=== PATIENT | female | born 1990 | race Caucasian/White ===

== ENCOUNTER → 2021-04-25 09:32 | Outpatient (BNVA) | payer OTHER, SELFPAY | PROVIDERS: PCP Internal Medicine; Visit Provider Physician Assistant Surgical ==

== ENCOUNTER → 2021-05-10 13:01 | Outpatient (BNVA) | payer OTHER, SELFPAY | PROVIDERS: PCP Internal Medicine; Visit Provider Physician Assistant Surgical | DX: E66.01 Morbid (severe) obesity due to excess calories (principal); Z79.899 Other long term (current) drug therapy; Z71.3 Dietary counseling and surveillance | CPT/HCPCS: Q3014 ==

== ENCOUNTER 2021-05-24 08:36 | Outpatient (REF) | payer OTHER, SELFPAY ==
--- NOTE | ~2021-05-24 | XR_ITS ---
EXAMINATION: XR CHEST CLINICAL INFORMATION: Moderate/severe obesity. COMPARISON: None TECHNIQUE: 2 views of the chest were obtained. FINDINGS: No significant abnormality is noted involving the heart, lungs, mediastinum, or soft tissues. Mild multilevel degenerative spondylosis. XR/XR chest 2V IMPRESSION: No radiographic evidence of acute cardiopulmonary disease.
--- NOTE | 2021-05-24 08:49 | ECG_ITS ---
Test Reason : E66.01 Blood Pressure : / mmHG Vent. Rate : 072 BPM Atrial Rate : 072 BPM P-R Int : 130 ms QRS Dur : 080 ms QT Int : 384 ms P-R-T Axes : 010 033 021 degrees QTc Int : 420 ms Normal sinus rhythm Normal ECG No previous ECGs available Referred By: Skip Chairez Electronically Signed By:ROCHELLE BAIG MD
[2021-05-24 09:07] LABS: MANUAL DIFF FLAG NO
[2021-05-24 09:37] LABS: Basophils Percent Auto 0.3 % (0-2); Eosinophils Absolute Auto 0.2 X10*3/uL (0.0-0.4); Eosinophils Percent Auto 2.6 % (0-4); Hematocrit 36.7 % (37.0-47.0); Hemoglobin 12.1 g/dl (12.0-16.0); Imm Gran Abs Auto 0.01 X10*3/uL (0.00-0.03); Imm Gran Pct Auto 0.2 % (0.0-0.4); Lymphocytes Absolute Auto 1.9 X10*3/uL (1.2-4.9); Lymphocytes Percent Auto 30.3 % (20-40); Mean Corpuscular Hemoglobin 27.1 pg (27.0-33.0); Mean Corpuscular Volume 82.3 fL (80.0-98.0); Monocytes Absolute Auto 0.6 X10*3/uL (0.1-1.2); Monocytes Percent Auto 9.9 % (2-11); Neutrophils Absolute Auto 3.5 x10*3/uL (2.0-8.3); Neutrophils Percent Auto 56.7 % (45-73); Platelet Count 318 X10*3/uL (160-400); Red Blood Count 4.46 X10*6/uL (4.20-5.50); Red Cell Distribution Width 12.9 % (11.0-16.0); White Blood Count 6.2 X10*3/uL (4.8-10.8)
[2021-05-24 10:29] LABS: Estimated Average Glucose 108 mg/dL; Hemoglobin A1c % 5.4 %
[2021-05-24 10:40] LABS: Alanine Aminotransferase 23 U/L (0-31); Albumin Level 3.9 g/dL (3.5-5.0); Alkaline Phosphatase 107 U/L (39-117); Anion Gap 11 (12-20); Aspartate Amino Transferase 19 U/L (5-31); Bilirubin Total 0.5 mg/dL (0.0-1.0); Blood Urea Nitrogen 12 mg/dL (9-16); C Reactive Protein 4.06 mg/dL (< or = 0.50); Calcium 9.6 mg/dL (8.4-10.2); Carbon Dioxide 26 mmol/L (22-29); Chloride 104 mmol/L (96-108); Cholesterol 150 mg/dL; Estimated Glomerular Filt Rate > 60; Glucose Random 94 mg/dL (60-115); HDL Cholesterol 26 mg/dL; Iron 58 mcg/dL (30-160); LDL Cholesterol Calculated 112 mg/dl; Percent Iron Saturation 13 % (15-50); Potassium 4.3 mmol/L (3.3-5.1); Sodium 137 mmol/L (135-145); Total Iron Binding Capacity 452 mcg/dL (228-428); Total Protein 8.1 g/dL (6.5-8.0); Triglycerides 63 mg/dL; Unsaturated Iron Binding 394 ug/dL
[2021-05-24 10:42] LABS: Folate 12.8 ng/mL (> or = 4.0); Vitamin B12 772 pg/mL (200-900)
[2021-05-24 11:03] LABS: Ferritin 51 ng/mL (10-122); TSH reflex Free T4 0.99 uIU/mL (0.32-4.0)
[2021-05-27 14:36] LABS: Calcium (PTHI) 9.5 mg/dL (8.6-10.2); PTHI 60 pg/mL (16-77)
[2021-05-29 00:56] LABS: Zinc 68 mcg/dL (60-130)
[2021-05-29 13:16] LABS: Vitamin B1 <6 nmol/L (8-30)
[2021-05-30 16:05] LABS: Vitamin A 37 mcg/dL (38-98)
== END 2021-05-24 08:37 | disposition home or self-care (01) ==
LOC: HO.XRAY 08:36
PROVIDERS: PCP Internal Medicine; Visit Provider Physician Assistant Surgical
DX: Z01.818 Encounter for other preprocedural examination (principal); E66.01 Morbid (severe) obesity due to excess calories
CPT/HCPCS: 36415; 71046; 80053; 80061; 82306; 82607; 82728; 82746; 83036; 83540; 83970; 84425; 84443; 84590; 84630; 85025; 86140; 93005

== ENCOUNTER → 2021-06-05 08:08 | Outpatient (BNVA) | payer OTHER, SELFPAY | PROVIDERS: PCP Internal Medicine; Visit Provider Surgery | DX: Z13.89 Encounter for screening for other disorder (principal) ==

== ENCOUNTER → 2021-06-06 09:48 | Outpatient (BNVA) | payer OTHER, SELFPAY | PROVIDERS: PCP Internal Medicine; Visit Provider Surgery | DX: Z13.89 Encounter for screening for other disorder (principal) ==

== ENCOUNTER → 2021-06-07 10:30 | Outpatient (BNVA) | payer OTHER, SELFPAY | PROVIDERS: PCP Internal Medicine; Visit Provider Dietitian, Registered | DX: E66.01 Morbid (severe) obesity due to excess calories (principal); Z68.42 Body mass index [BMI] 45.0-49.9, adult; Z71.3 Dietary counseling and surveillance | CPT/HCPCS: 97802 ==

== ENCOUNTER → 2021-06-26 08:08 | Outpatient (BNVA) | payer OTHER, SELFPAY | PROVIDERS: PCP Internal Medicine; Referring Provider Surgery; Visit Provider Dietitian, Registered | DX: E66.01 Morbid (severe) obesity due to excess calories (principal); Z68.42 Body mass index [BMI] 45.0-49.9, adult | CPT/HCPCS: 97803 ==

== ENCOUNTER 2021-07-10 08:29 | Outpatient (REF) | payer OTHER, SELFPAY ==
--- NOTE | ~2021-07-10 | FL_ITS ---
EXAMINATION: XR FLUOROSCOPY UPPER GI WITH AIR CLINICAL INFORMATION: Morbid to severe obesity due to excess calories. COMPARISON: None TECHNIQUE: Routine upper GI contrast study was performed. FINDINGS: Following oral administration of thick barium and effervescent granules there is normal propagation of bolus from the oral cavity through the pharynx, esophagus into stomach without any evidence of obstruction, narrowing or stricture. The course, caliber and peristalsis of the stomach is normal. On placing patient supine and prone there is moderate gastroesophageal reflux without hiatal hernia. The mucosal pattern of the stomach, duodenal bulb and the sweep is normal. The course, caliber and peristalsis of the stomach is normal. Incidental note is made of cholecystectomy changes. FLUOROSCOPY TIME: 2.3 minutes DOSE AREA PRODUCT: 29.920 uGy-m2 (microgray-meter squared) FL/FL upper GI w air IMPRESSION: Moderate gastroesophageal reflux without hiatal hernia. Otherwise unremarkable upper GI air-contrast study.
--- NOTE | ~2021-07-10 | US_ITS ---
EXAMINATION: US COMPLETE ABDOMEN WITH LIVER ELASTOGRAPHY CLINICAL INFORMATION: Morbid/severe obesity. COMPARISON: None. TECHNIQUE: Real-time imaging of the abdominal viscera. Noninvasive ultrasound liver fibrosis assessment is performed using Erica ElastPQ point quantification shear wave elastography (2D-SWE) with a C5-2 MHz transducer. Multiple elastography samples are obtained. FINDINGS: PANCREAS: The visualized pancreatic head and body are normal in appearance. The remainder of the pancreas is obscured from visualization by the overlying bowel gas. ABDOMINAL AORTA: The proximal, middle, and distal aortic segments are normal in caliber. INFERIOR VENA CAVA: Visualized portions are normal. LIVER: The liver demonstrates normal size, contour and increased echogenicity. There is anechoic right hepatic lobe cyst measuring 1.2 x 1.2 x 0.8 cm. No additional lesions seen. There is no intrahepatic ductal dilatation. The right lobe measures 1.52 cm in length. The left lobe measures 0.12 cm in length. Portal flow is hepatopedal. Shear wave liver elastography median stiffness is 1.52 m/s (reference: normal median stiffness is 1.3 m/s or less). IQR/median stiffness to assess sampling precision is 0.12 (reference: good quality data set is IQR/median stiffness of 0.15 or less). GALLBLADDER: Gallbladder has been surgically removed. COMMON BILE DUCT: Normal in caliber measuring 0.19 cm in diameter. RIGHT KIDNEY: Normal. No hydronephrosis. No renal calculi or focal parenchymal lesions. The kidney measures 10.1 cm in maximum dimension. LEFT KIDNEY: Normal. No hydronephrosis. No renal calculi or focal parenchymal lesions. The kidney measures 10.2 cm in maximum dimension. SPLEEN: Normal. The spleen measures 9.55 cm in maximum dimension. FREE FLUID: None. US/US abdomen comp w elastography IMPRESSION: 1. Right hepatic lobe cyst with diffuse hepatic steatosis. 2. Liver elastography: Median liver stiffness measures 1.52 m/s corresponding to cACLD ruled out. REFERENCE: Society of Radiologists in Ultrasound Liver Stiffness Thresholds (2019): LIVER STIFFNESS THRESHOLDS: *Liver Stiffness equal or less than 1.3 m/s: High probability of being normal. *Liver Stiffness less than 1.7 m/s: In the absence of other known clinical signs, rules out compensated advanced chronic liver disease. *Liver Stiffness 1.7-2.1 m/s: Suggestive of compensated advanced chronic liver disease but need further test for confirmation. *Liver Stiffness over 2.1 m/s: Rules in compensated advanced chronic liver disease. *Liver Stiffness over 2.4 m/s: Suggestive of clinically significant portal hypertension. QUALITY OF DATA SET: *IQR/Median value equal or less than 0.15 implies a quality data set. *IQR/Median value over 0.15 implies a poor quality data set. SIGNIFICANT CHANGE FROM PRIOR EXAM: Significant change if liver stiffness measurement is 10% or greater from prior exam. OTHER CONSIDERATIONS: The stage of liver fibrosis may be overestimated in the setting of acute hepatitis, liver inflammation, elevated liver function tests, hepatic vascular congestion, obstructive cholestasis, non-fasting state, and infiltrative diseases such as amyloidosis and lymphoma. In some patients with NAFLD, the liver stiffness thresholds for compensated advanced chronic liver disease may be lower. In causes other than viral hepatitis and NAFLD, liver stiffness thresholds are not well established.
== END 2021-07-10 08:30 | disposition home or self-care (01) ==
LOC: HO.US 08:29
PROVIDERS: PCP Internal Medicine; Visit Provider Surgery
DX: Z01.818 Encounter for other preprocedural examination (principal); E66.01 Morbid (severe) obesity due to excess calories; K21.9 Gastro-esophageal reflux disease without esophagitis
CPT/HCPCS: 74246; 76705; 76981

== ENCOUNTER → 2021-07-12 08:16 | Outpatient (BNVA) | payer OTHER, SELFPAY | PROVIDERS: PCP Internal Medicine; Visit Provider Surgery | DX: Z13.89 Encounter for screening for other disorder (principal) ==

== ENCOUNTER 2021-07-16 08:25 | Outpatient (REF) | payer OTHER, SELFPAY ==
[2021-07-17 14:10] LABS: H Pylori Breath Test Negative (Negative)
== END 2021-07-16 08:26 | disposition home or self-care (01) ==
LOC: HO.LNP 08:25
PROVIDERS: Physician Assistant Surgical; PCP Internal Medicine; Visit Provider Physician Assistant
DX: E66.01 Morbid (severe) obesity due to excess calories (principal); Z11.0 Encounter for screening for intestinal infectious diseases
CPT/HCPCS: 83013; 99211

== ENCOUNTER 2021-11-26 17:09 | Inpatient (IN) | payer OTHER, SELFPAY ==
[2021-11-15 13:33] VITALS: BMI 42.2
[2021-11-19 09:49] LABS: MANUAL DIFF FLAG NO
[2021-11-19 11:41] LABS: Estimated Average Glucose 103 mg/dL; Hemoglobin A1c % 5.2 %
[2021-11-19 11:42] LABS: INTERNATIONAL NORM RATIO 1.1 (0.9-1.1); Prothrombin Time 12.2 SEC (10.0-13.1)
[2021-11-19 11:45] LABS: Basophils Percent Auto 0.4 % (0-2); Eosinophils Absolute Auto 0.1 X10*3/uL (0.0-0.4); Hematocrit 37.2 % (37.0-47.0); Hemoglobin 12.5 g/dl (12.0-16.0); Imm Gran Abs Auto 0.01 X10*3/uL (0.00-0.03); Imm Gran Pct Auto 0.2 % (0.0-0.4); Lymphocytes Absolute Auto 1.6 X10*3/uL (1.2-4.9); Lymphocytes Percent Auto 32.3 % (20-40); Mean Corpuscular HGB Conc 33.6 g/dl (31.0-35.0); Mean Corpuscular Hemoglobin 27.8 pg (27.0-33.0); Mean Corpuscular Volume 82.9 fL (80.0-98.0); Mean Platelet Volume 9.5 fL (9.4-12.3); Monocytes Absolute Auto 0.4 X10*3/uL (0.1-1.2); Monocytes Percent Auto 8.7 % (2-11); Neutrophils Absolute Auto 2.9 x10*3/uL (2.0-8.3); Neutrophils Percent Auto 56.4 % (45-73); Partial Thromboplastin Time 30.1 SEC (26.0-36.4); Platelet Count 296 X10*3/uL (160-400); Red Blood Count 4.49 X10*6/uL (4.20-5.50); Red Cell Distribution Width 12.5 % (11.0-16.0); White Blood Count 5.1 X10*3/uL (4.8-10.8)
[2021-11-19 12:04] LABS: Alanine Aminotransferase 43 U/L (0-31); Albumin Level 3.8 g/dL (3.5-5.0); Alkaline Phosphatase 93 U/L (39-117); Anion Gap 13 (12-20); Aspartate Amino Transferase 31 U/L (5-31); Bilirubin Total 0.9 mg/dL (0.0-1.0); Blood Urea Nitrogen 11 mg/dL (9-16); C Reactive Protein 1.57 mg/dL (< or = 0.50); Calcium 9.1 mg/dL (8.4-10.2); Carbon Dioxide 25 mmol/L (22-29); Chloride 106 mmol/L (96-108); Cholesterol 127 mg/dL; Creatinine Clr Calc Pharmacy 112.4; Estimated Glomerular Filt Rate > 60; Glucose Random 89 mg/dL (60-115); HDL Cholesterol 25 mg/dL; LDL Cholesterol Calculated 94 mg/dl; Potassium 3.9 mmol/L (3.3-5.1); Sodium 140 mmol/L (135-145); Total Protein 7.6 g/dL (6.5-8.0); Triglycerides 44 mg/dL
[2021-11-19 12:12] LABS: Insulin 15 uU/mL (2-29); TSH reflex Free T4 1.07 uIU/mL (0.32-4.0)
--- NOTE | 2021-11-22 09:45 | HO.ANESPROP2 ---
Documented by User: Leidy Reyna NP 11/22/21 09:46 HPI - Anesthesia Eval Consult details Narrative: 31yo F for Gastrectomy Sleeve, EDG, possible diaphragmatic hernia, possible ventral hernia, possible open PMFSH Active Problems Active Problems: All Active Problems (Updated 11/15/21 @ 13:33 by Desirae Baird RN) Morbid obesity (Acute) ALINA (obstructive sleep apnea) (Acute) PTSD (post-traumatic stress disorder) (Acute) Low back pain (Acute) Chondromalacia (Acute) Depression (Acute) Vitamin A deficiency (Acute) Past Medical History Medical History (Updated 11/26/21 @ 13:03 by Carlos Gerber MD) COVID-19 vaccination declined Depression Insomnia Low back pain PTSD (post-traumatic stress disorder) Sleep apnea Family History Family History (Updated 04/26/21 @ 15:18 by Linnea Dunaway [facility]) Mother Fibromyalgia Anxiety Panic attacks Depression Father Heart problem Schizophrenia PTSD (post-traumatic stress disorder) Bipolar 1 disorder Sister No problems noted. Sister No problems noted. Sister No problems noted. Brother Sleep apnea PTSD (post-traumatic stress disorder) Kidney problem Son ADHD Speech delay Asthma Son Speech delay Autism Asthma Eczema Surgical History Surgical History (Updated 11/15/21 @ 13:33 by Desirae Baird RN) History of wisdom tooth extraction, class I edentulism Hx laparoscopic cholecystectomy Social History Social History (Updated 04/26/21 @ 15:18 by Linnea Dunaway [facility]) Are you a primary child day care teacher to a significant other at home: No Do you presently have visiting nurse or other home services: No Alcohol intake: never Patient Tobacco Use Status: Never used Tobacco Use of substances other than those prescribed or required for medical reasons: No Have you been hit, kicked, punched, or otherwise hurt by someone within the past year? If so, by whom?: No Are you DNR?: No Advance Directives: No Advance Directives Information Provided: Yes (brochure mailed) Advance Directives on File: No Recently lost weight without trying: No Nutrition Risks: No Nutritional Risk Patient : No (spoke with patient on 11/15-denies chance of ) FDLMP: 10/13/21 : No Poor oral hygiene: No Meds Allergies Allergy/AdvReac Type Severity Reaction Status Date / Time penicillin G Allergy Severe Anaphylaxis Verified 11/15/21 11:50 Latex, Natural Rubber Allergy Intermediate Rash Verified 11/15/21 13:05 Home Medications Medication Instructions Recorded Confirmed Last Taken Type azelastine 137 mcg (0.1 %) nasal 2 spray intranasal BID 04/26/21 11/15/21 11/16/21 History spray aerosol Exam Exam Date and Time: November 22, 2021 0945 Height,Weight and Vital Signs: Height 5 ft 1.5 in Weight 103.022 kg Pertinent Lab Results Pertinent Lab Results: Laboratory Tests 11/19/21 11/19/21 11/19/21 09:39 09:46 09:46 WBC 5.1 RBC 4.49 Hgb 12.5 Hct 37.2 MCV 82.9 MCH 27.8 MCHC 33.6 RDW 12.5 Plt Count 296 MPV 9.5 Immature Gran % (Auto) 0.2 Neut % (Auto) 56.4 Lymph % (Auto) 32.3 [place] % (Auto) 8.7 Eos % (Auto) 2.0 Baso % (Auto) 0.4 Lymph # (Auto) 1.6 [place] # (Auto) 0.4 Eos # (Auto) 0.1 Baso # (Auto) 0.0 Abs Immat Gran (auto) 0.01 Absolute Neuts (auto) 2.9 Absolute Nucleated RBC 0.000 Nucleated RBC % (auto) 0.0 PT 12.2 INR 1.1 APTT 30.1 Sodium Potassium Chloride Carbon Dioxide Anion Gap BUN Creatinine Estim Creat Clear Calc Estimated GFR Random Glucose Estimat Average Glucose Hemoglobin A1c % Insulin Level Calcium Total Bilirubin AST ALT Alkaline Phosphatase C-Reactive Protein Total Protein Albumin Triglycerides Cholesterol LDL Cholesterol, Calc HDL Cholesterol TSH Blood Type O Positive Antibody Screen NEGATIVE 11/19/21 11/19/21 09:46 09:46 WBC RBC Hgb Hct MCV MCH MCHC RDW Plt Count MPV Immature Gran % (Auto) Neut % (Auto) Lymph % (Auto) [place] % (Auto) Eos % (Auto) Baso % (Auto) Lymph # (Auto) [place] # (Auto) Eos # (Auto) Baso # (Auto) Abs Immat Gran (auto) Absolute Neuts (auto) Absolute Nucleated RBC Nucleated RBC % (auto) PT INR APTT Sodium 140 Potassium 3.9 Chloride 106 Carbon Dioxide 25 Anion Gap 13 BUN 11 Creatinine 0.80 Estim Creat Clear Calc 112.4 Estimated GFR > 60 Random Glucose 89 Estimat Average Glucose 103 Hemoglobin A1c % 5.2 Insulin Level 15 Calcium 9.1 Total Bilirubin 0.9 AST 31 D ALT 43 H Alkaline Phosphatase 93 C-Reactive Protein 1.57 H Total Protein 7.6 Albumin 3.8 Triglycerides 44 Cholesterol 127 LDL Cholesterol, Calc 94 HDL Cholesterol 25 TSH 1.07 Blood Type Antibody Screen Narrative Narrative: EKG 05/2021 Vent. Rate : 072 BPM ? ? Atrial Rate : 072 BPM ?? P-R Int : 130 ms? QRS Dur : 080 ms ? ? QT Int : 384 ms ? ? ? P-R-T Axes : 010 033 021 degrees ?? QTc Int : 420 ms ? Normal sinus rhythm Normal ECG No previous ECGs available Assessment and Plan Assessment Anesthesia Assessment: Chart Reviewed Documented by User: Rad Antoine MD 11/26/21 17:17 PMF Past Medical History Medical History (Updated 11/26/21 @ 13:03 by Carlos Gerber MD) COVID-19 vaccination declined Depression Insomnia Low back pain PTSD (post-traumatic stress disorder) Sleep apnea Functional capacity: independent ambulation Family History Family History (Updated 04/26/21 @ 15:18 by Linnea Dunaway CMA) Mother Fibromyalgia Anxiety Panic attacks Depression Father Heart problem Schizophrenia PTSD (post-traumatic stress disorder) Bipolar 1 disorder Sister No problems noted. Sister No problems noted. Sister No problems noted. Brother Sleep apnea PTSD (post-traumatic stress disorder) Kidney problem Son ADHD Speech delay Asthma Son Speech delay Autism Asthma Eczema Family history of problems with anesthesia: No Surgical History Surgical History (Updated 11/15/21 @ 13:33 by Desirae Baird RN) History of wisdom tooth extraction, class I edentulism Hx laparoscopic cholecystectomy History of Problems with Anesthesia: No Social History Social History (Updated 04/26/21 @ 15:18 by Linnea Dunaway CMA) Are you a primary child day care teacher to a significant other at home: No Do you presently have visiting nurse or other home services: No Alcohol intake: never Patient Tobacco Use Status: Never used Tobacco Use of substances other than those prescribed or required for medical reasons: No Have you been hit, kicked, punched, or otherwise hurt by someone within the past year? If so, by whom?: No Are you DNR?: No Advance Directives: No Advance Directives Information Provided: Yes (brochure mailed) Advance Directives on File: No Recently lost weight without trying: No Nutrition Risks: No Nutritional Risk Patient : No (spoke with patient on 11/15-denies chance of ) FDLMP: 10/13/21 : No Poor oral hygiene: No Meds Allergies Allergy/AdvReac Type Severity Reaction Status Date / Time penicillin G Allergy Severe Anaphylaxis Verified 11/15/21 11:50 Latex, Natural Rubber Allergy Intermediate Rash Verified 11/15/21 13:05 Home Medications Medication Instructions Recorded Confirmed Last Taken Type azelastine 137 mcg (0.1 %) nasal 2 spray intranasal BID 04/26/21 11/15/21 11/16/21 History spray aerosol Exam Airway Mallampati Class: III TM Dist: >3cm Neck ROM: Full Loose/Missing/Broken Teeth: Yes (poor dentition ) Heart: S1,S2 Lungs: b/l breath sounds Assessment and Plan Assessment Anesthesia Assessment: Anesthesia Plan Discussed Final Anesthetic Review Family History of Problems with Anesthesia: No History of Problems with Anesthesia: No NPO: Yes ASA Class: III Final Preanesthetic Review: Meds/Allgs Chart Reviewed, Consent Obtained/Reviewed and Anes Risks/Benef Reviewed Patient Risk: Intermediate Procedure Risk: Intermediate Anesthetic Plan Anesthetic Plan: GA Disposition: Standard PACU
--- NOTE | 2021-11-23 11:34 | MHC.SHP ---
Pre-Procedural Eval Section A Date of Service: 11/23/21 The patient is an INPATIENT: No The History & Physical has been completed within 30 days and I have reviewed it.: Yes Section B Chief Complaint: Morbid (severe) obesity due to excess calories Relevant Family History (Specify if Yes): No Relevant Social History: None Present Medications: None Medical History: No relevant PMH History of Previous Operations: No relevant previous surgery Allergies: Allergies Allergy/AdvReac Type Severity Reaction Status Date / Time penicillin G Allergy Severe Anaphylaxis Verified 11/15/21 11:50 Latex, Natural Rubber Allergy Intermediate Rash Verified 11/15/21 13:05 Review of Systems Sugical H&P ROS: Negative: Constitution, Cardiovascular, Respiratory, Neurological, Psychiatric, Hem-Onc, Allergic/Immunologic, Gastrointestinal, Genitourinary, Musculoskeletal, Integumentary, Endocrine and Eyes/Ears/Nose/Throat Exam Surgical H&P Exam: Normal: HEENT, Normal: Heart, Normal: Lungs, Normal: Extremities, Normal: Abdomen, Normal: Skin and Normal: Neurological Plan Diagnosis/Plan: Unchanged I have reviewed the history and physical and performed a pertinent physical examination on my patient. No changes have occurred unless specified.
[2021-11-26] VITALS (12 sets, daily range): BP systolic 124–146; BP diastolic 64–91; PULSE 50–80; RESP 15–18; TEMP 36–36.6; O2SAT 96–100
[2021-11-26 09:19] LABS: UPreg QC Valid YES; Urine Pregnancy NEGATIVE (NEGATIVE)
[2021-11-26] MEDS: Lactated Ringers 1,000 ML 100 ML IVCONT ×2 (09:22→17:51)
[2021-11-26] MEDS: Lactated Ringers 1,000 ML 999 ML IV (09:22)
[2021-11-26 09:26] LABS: IDNOW Serial# 16C4AD1C
[2021-11-26 09:27] LABS: COVID-19 Test Negative (Negative)
--- NOTE | 2021-11-26 12:58 | P.BOP_ITS ---
Brief Operative Note Date of Service: 11/26/21 Pre-op diagnosis: Morbid obesity with comorbidities (see below) Post-op diagnosis: same Procedure: INITIAL PATIENT BMI ON PRESENTATION AT OUR OFFICE: 47 kg/m2 LAST BMI BEFORE SURGERY: 42.5 kg/m2 COMORBIDITIES: sleep apnea on CPAP, asthma, DJD, liver steatosis, liver fibrosis, insomnia ?The patient presented to the Weight Management Program with significant obesity that was negatively impacting the patient's comorbidities as listed above.? The program is a phased program with a special focus on preoperative medical weight management to promote substantial weight loss and prepare the patients for the second phase of the program: bariatric surgery. The patient participated in an intensive weekly lifestyle ?intervention and exercise program during which the patient ?has lost between the initial office visit and the last preoperative visit 30.5lbs, or 12.07% of initial actual body weight. It was deemed appropriate for the patient to now have bariatric surgery. In light of the current Covid-19 pandemic and the well documented strong association of obesity and increased risk of worse outcomes if infected with Covid-19 (REFERENCES: https://pubmed.ncbi.nlm.nih.gov/44891250/ ,? https://pubmed.ncbi.nlm.nih.gov/01034338/ ), any delay in undergoing bariatric surgery may lead to the patient's worsening health condition and increased?risk of more severe Covid-19 disease if infected. In addition a recent?study from [facility] published in [employer] on 02/11/2021 ([id number]) found that, among patients with obesity, substantial weight loss achieved with surgery was associated with improved outcomes of COVID-19 infection. The findings suggest that obesity can be a modifiable risk factor for the severity of COVID-19 infection. In addition, the patient met the BMI-criteria for bariatric surgery based on the BMI on initial presentation. The patient should not be penalized for achieving such weight loss because ?it is not sustainable long-term without surgical intervention and it was achieved in preparation for bariatric surgery ?under my direction and based on my published research ([email or web address]).[email or web address] and? https://www.soard.org/article/[email or web address](79)44568-X/pdf ) ?that a 10% pre operative weight loss improves long-term weight loss after surgery and reduces perioperative complications.? Insurance carriers such as [facility] have endorsed my recommendations ?and have included in their policies criteria to include a 10% preoperative weight loss requirement. PROCEDURE: Esophago-gastroscopy, laparoscopic sleeve gastrectomy and laparoscopic gastropexy INDICATIONS: This is a 31 year-old female who was electively scheduled for laparoscopic, possibly open sleeve gastrectomy. The risks and complications of the procedure were discussed with the patient in advance, particularly the p ossibility of ; pulmonary embolism; staple line leak; bleeding; GERD; cardiac, pulmonary, or renal complications; as well as long-term problems such as insufficient weight loss, vitamin deficiency, strictures, or ulcers. The patient understood all the risks, and was in agreement to proceed with surgery. DESCRIPTION OF PROCEDURE: After informed consent was obtained from the patient, the patient was given preoperative antibiotics, and was transferred to the operating room. After successful induction of general anesthesia, pneumatic compression devices were placed on both lower extremities. An upper endoscopy was performed next. The oropharynx and esophagus appeared to be within normal limits. There was no diaphragmatic hernia present consistent with the findings of the preoperative upper GI. The stomach was entered. Then after all fluid and air were suctioned and the stomach was fully decompressed, the scope was withdrawn and secured in the mid esophagus. The patient was then prepped and draped in the usual sterile manner, and abdominal access was established at the right upper quadrant with the Krzysztof technique. A 12 mm blunt port was inserted, and the abdomen was insufflated with CO2 to a pressure of 15 mmHg. Under direct visualization, additional ports were placed, specifically two 5 mm Versi-step ports to the left upper quadrant, and a 5 mm Versi-Step port to the right upper quadrant. 1% lidocaine plain was used to infiltrate all port sites as well as all fascia defects. Using the EndoClose suture passer device, I placed a #1 Polysorb tie across the falciform ligament in order to retract it up against the abdominal wall and prevent injury of the ligament with our instruments during the procedure. Following that, the patient was placed in a steep reverse Trendelenburg position. An additional 5 mm port was placed to the right flank for the Mediflex retractor that was used to retract the left lobe of the liver. The gastro-esophageal fat pad was opened with the ultrasonic device (Thunderbeat, Olympus) and the anterior esophagus and hiatus were exposed. The angle of His was opened with the ultrasonic device the fundus of the stomach from any diaphragmatic and splenic attachments. I then opened the gastrocolic ligament between the transverse colon and the greater curvature of the stomach with the ultrasonic device to enter the lesser sac and facilitate the ligation of the short gastric vessels. I started at a mid-point along the greater curvature and using the Thunderbeat, all short gastric vessels were divided all the way to the angle of His until the left radha was completely dissected at its entirety. I then divided the gastro-colic ligament distally to a distance of about 3-4 cm proximal to the pylorus. The stomach was then divided transversely with one Endo CHRIS-45 purple, one CHRIS- 45 orange load and four CHRIS-60 articulating orange loads using the AEON stapler and loads. Every effort was made that the gastric sleeve had a tubular shape and an even caliber throughout. Once the sleeve resection was completed, the staple line of the gastric sleeve was reinforced with Hemoclips. The resected stomach was retrieved without difficulty from the Krzysztof port. A gastropexy was then performed in order to prevent postoperative GERD and partial gastric volvulus. Several interrupted 2.0 Surgidac sutures were placed between the sleeve's staple line and the previously divided greater omentum and gastro-colic ligament using the Endo-Stitch device. ?An upper endoscopy was performed. There was no narrowing at the GE junction. The scope was easily advanced all the way to the pylorus which was clearly visualized. There was no narrowing anywhere and the sleeve's caliber was even throughout. The sleeve's staple line was inspected and there was no evidence of ischemia, bleeding or dehiscence. At that point the gastroscope was withdrawn from the patient?s mouth while we were decompressing the bowel and the stomach from any remaining air. I looked into the lesser sac to see how the sleeve was situating and it was situating well. There was no bleeding from the staple line, spleen, or short gastric vessels. The Mediflex retractor was removed, and the undersurface of the liver was inspected and there was no bleeding. The patient was placed in supine position. I closed the fascial defect of the 12 mm port site with a figure of eight #1 Polysorb suture. Then 30cc of Ropivacaine plain with 10 mg of Dexamethasone were used to infiltrate the fascial closure as well as all skin incisions. A total of 7ml of Zynrelef was applied in the Hassson wound. At this point, the abdomen was deflated, all ports were removed under direct vision, and no bleeding was noted from any of the port sites. The skin incisions were irrigated with saline and were closed with 4-0 absorbable monofilament sutures. Steri-Strips and OpSites were used to cover all incisions. The patient was extubated and was transferred in stable condition to the recovery room for further care. I was present and performed all fitzgerald parts of the procedure. Ms. To was the presser first. There were no residents to assist with this case. Gurmeet Gerber MD, PhD, FACS Surgeon: Carlos Gerber MD Anesthesia: GETA, local and other (TAP block and 7ml Zynrelef) Was an Transit Manager used for this Procedure?: No Transit Manager: Edith To Estimated blood loss (mL): 10 IV fluids (mL): 3,000 Urine output (mL): 0 (No Reddy to record) Pathology: other (Stomach) Condition: stable Disposition: PACU
--- NOTE | 2021-11-26 13:01 | PM.PNGS ---
Subjective Subjective Date of Service: 11/27/21 Interval history: Patient has mild incisional pain, but was able to ambulate and use the incentive spirometer. She is tolerating phase 1 bariatric diet Physical Exam Vital Signs: Vital Signs: Last Vital Signs Temp 98 F 11/26/21 08:49 Pulse 69 11/26/21 08:49 Resp 17 11/26/21 08:49 BP 134/76 11/26/21 08:49 Pulse Ox 99 11/26/21 08:49 O2 Del Method 11/26/21 08:49 BMI result Body Mass Index 42.2 GI: Inspection: Yes normal to inspection, Yes incision (lee ann, dry and intact) and Yes obesity Extrem: Right lower extremity: normal to inspection (no calf tenderness) Left lower extremity: normal to inspection (no calf tenderness) Objective Data Active Medications Lactated Ringer's (Lr) 1,000 mls @ 100 mls/hr IVCONT .Q10H ESTEFANI Last Admin: 11/26/21 09:22 Dose: 100 mls/hr Documented By: GIL Labs CBC & Chem 7: 11/27/21 05:48 11/27/21 05:48 Labs: Laboratory Results - last 24 hr 11/26/21 11/26/21 08:58 08:58 Urine Test NEGATIVE COVID-19 (KENDY) Negative COVID-19 Clin Com See Note Procedures Date of Service Date of Service: 11/27/21 Progress Note: A&P Assessment and plan (1) Morbid obesity: Status: Acute Assessment and Plan: s/p laparoscopic sleeve gastrectomy and gastropexy Doing well Check am labs. If OK, will discharge home? (2) ALINA (obstructive sleep apnea): Status: Acute (3) PTSD (post-traumatic stress disorder): Status: Acute (4) Low back pain: Status: Acute (5) Chondromalacia: Status: Acute (6) Depression: Status: Acute (7) Steatosis, liver: Status: Acute (8) Liver fibrosis: Status: Acute (9) Insomnia: Status: Acute (10) S/P laparoscopic sleeve gastrectomy: Status: Acute Time Spent With Patient Time: Total time spent is greater than 50% in coordination of care (as documented) at patient's floor/unit and/or counseling patient: Quality Stroke Does the patient have a stroke diagnosis?: No VTE Prior VTE?: No VTE Risk Level:: Surgical - moderate VTE Device Contraindication: N/A - Device Ordered VTE Drug Contraindication: Treatment Not Indicated
[2021-11-26] MEDS: levoFLOXacin/D5W 500 MG/100 ML PIGGYBACK 100 MG IV (13:46)
--- NOTE | 2021-11-26 16:43 | PM.DS ---
DS: Providers Provider Date of Service: 11/27/21 Primary care physician: Savi Freire DS: Diagnosis Discharge Diagnosis (1) Morbid obesity: Status: Acute (2) ALINA (obstructive sleep apnea): Status: Acute (3) PTSD (post-traumatic stress disorder): Status: Acute (4) Low back pain: Status: Acute (5) Chondromalacia: Status: Acute (6) Depression: Status: Acute (7) Steatosis, liver: Status: Acute (8) Liver fibrosis: Status: Acute (9) Insomnia: Status: Acute DS: Summary Hospital Course Hospital Course: ADMITTING DIAGNOSIS: morbid obesity DISCHARGE DIAGNOSIS: same, s/p laparoscopic sleeve gastrectomy PAST SURGICAL HISTORY:?wisdom tooth extraction PROCEDURE: upper endoscopy, laparoscopic sleeve gastrectomy DISCHARGE SUMMARY: History of Present Illness: The patient is a? 31? year-old woman with a BMI of? ?47 ? kg/m2 and associated co-morbidities as described above. The patient had extensive work-up, lost? 25.6 ? lbs preoperatively and was electively scheduled for laparoscopic, possible open sleeve gastrectomy and gastropexy. Risks and complications of the surgery were discussed with the patient in advance, particularly the possibility of , pulmonary embolism, anastomotic leak, bleeding, bowel injury, GERD, cardiac, renal or pulmonary complications. The patient understood all the risks and was in agreement with the surgical plan. Hospital Course: The patient underwent an uneventful laparoscopic sleeve gastrectomy with gastropexy on the day of admission. Postoperatively, the patient was transferred to the surgical floor. The patient received IV Acetaminophen and IV dilaudid for pain control. Patient was started on bariatric phase 1 diet POD #0. On postoperative day one, the patient was feeling well without nausea, vomiting, fevers, or tachycardia. The patient had some mild incisional pain and the abdomen was soft.? On the morning of postoperative day one, the patient was continued on 1 ounce of water or ice every half hour. During the day, the patient did fairly well, having some incisional pain, but able to ambulate adequately and to tolerate liquids well. Since the patient is doing well, we decided that the patient was ready to be discharged. The patient was given instructions to follow-up with me next week and to call my office for any fever over 101, persistent abdominal pain, nausea, vomiting, GERD, symptoms of DVT such as calf tenderness, or leg swelling, or pulmonary embolism such as chest pain or shortness of breath.? The patient was also instructed to drink 40-60 ounces of liquids per day using the 1-ounce cups. The patient had been given prescriptions for Tylenol for pain, Zofran prn for nausea, and pantoprazole and carafate previously. The patient was encouraged to ambulate and use the incentive spirometer. The patient was allowed to shower, but no baths, and encouraged to stay active at home. All of these instructions were given to the patient personally. All questions were answered and the patient understood all instructions, the instructions were also given to the patient in print. Time Spent with Patient Time attestation: Total time spent providing and/or coordinating discharge services: Discharge coordination time: Less than 30 minutes Quality: Safe Use of Opioids Does Pt have an Active Cancer Diagnosis on the Problem List?: No Quality: Stroke Does the patient have a stroke diagnosis?: No Physical Exam Vital Signs: Vital Signs: Last Vital Signs Temp 98 F 11/26/21 08:49 Pulse 69 11/26/21 08:49 Resp 17 11/26/21 08:49 BP 134/76 11/26/21 08:49 Pulse Ox 99 11/26/21 08:49 O2 Del Method 11/26/21 08:49 BMI result Body Mass Index 42.2 DS: Data Data Completed and Pending Pending studies at discharge: Pending at discharge 11/26/21 15:31 Surgical [PTH] Routine Labs on day of discharge: Laboratory Results - last 24 hr 11/26/21 11/26/21 08:58 08:58 Urine Test NEGATIVE COVID-19 (KENDY) Negative COVID-19 Clin Com See Note Discharge Plan Discharge Anticipated Discharge Date/Time: 11/27/21 09:27 Patient Disposition: Home, Self-Care Discharge Diagnosis: Morbid obesity Referrals: Savi Freire [Primary Care Provider] - 1 Week Discharge Medications: Continued azelastine 137 mcg (0.1 %) aerosol,spray 2 spray intranasal BID Rx Instructions: administer into each nostril pantoprazole 40 mg tablet,delayed release (DR/EC) 40 mg PO DAILY Qty: 30 2RF sucralfate 100 mg/mL suspension 10 ml PO BID Qty: 400 2RF Label Comments: POST OP MED ondansetron HCl 4 mg tablet 4 mg PO Q12H Qty: 20 0RF Label Comments: POST OP MED Discontinued cholecalciferol (vitamin D3) 125 mcg (5,000 unit) capsule 125 mcg PO DAILY Qty: 30 2RF thiamine HCl (vitamin B1) 100 mg tablet 100 mg PO DAILY Qty: 30 3RF prazosin 1 mg capsule 1 mg PO BEDTIME multivitamin Tablet 1 tab PO DAILY meloxicam 15 mg tablet 15 mg PO DAILY ferrous sulfate 325 mg (65 mg iron) tablet 325 mg PO DAILY vitamin A palmitate 10,000 unit capsule 10,000 unit PO .COMPLEX Qty: 30 2RF Rx Instructions: 10,000 units PO one per day; Discharge Orders: Discharge Order (Routine); Ordered 11/27/21 Ordered By: Carlos Gerber Diet: Bariatric diet Activity on Discharge: As tolerated Care Plan Goals: Follow bariatric diet protocol Health Concerns: None Plan of Treatment: Explained to patient Assessment: Done by Dr. Gerber (see progress note)
--- NOTE | 2021-11-26 17:00 | PHA.MEDREC ---
Pharmacy Consult ? Medication Reconciliation Pharmacy has completed the medication reconciliation. RN COMPLETED [facility] REVIEWED
[2021-11-26] MEDS: Famotidine/PF 20 MG/2 ML VIAL IVPUSH ×2 (17:05→19:12)
[2021-11-26 17:16] LABS: Hematocrit 35.3 % (37.0-47.0); Hemoglobin 11.9 g/dl (12.0-16.0)
[2021-11-26] MEDS: HYDROmorphone HCl 0.5 MG/0.5 ML SYRINGE 0.25 MG IVPUSH ×2 (17:19→21:33)
[2021-11-26 17:36] LABS: Anion Gap 15 (12-20); Blood Urea Nitrogen 7 mg/dL (9-16); Calcium 8.6 mg/dL (8.4-10.2); Carbon Dioxide 22 mmol/L (22-29); Chloride 107 mmol/L (96-108); Creatinine Clr Calc Pharmacy 123.2; Estimated Glomerular Filt Rate > 60; Glucose Random 128 mg/dL (60-115); Potassium 3.7 mmol/L (3.3-5.1); Sodium 140 mmol/L (135-145)
[2021-11-26] MEDS: ondansetron HCL 4 MG/2 ML VIAL IVPUSH (19:12)
[2021-11-26] MEDS: 0.9 % Sodium Chloride Flush 3 ML SYRINGE IVFLUSH (19:12)
[2021-11-26] MEDS: Metoclopramide HCl 10 MG/2 ML VIAL IVPUSH (21:33)
[2021-11-27] MEDS: ondansetron HCL 4 MG/2 ML VIAL IVPUSH (02:08)
[2021-11-27 03:21] VITALS: BP 133/81; PULSE 58; RESP 18; TEMP 36.3; O2SAT 98
[2021-11-27] MEDS: Lactated Ringers 1,000 ML 100 ML IVCONT (03:36)
[2021-11-27 06:27] LABS: MANUAL DIFF FLAG NO
[2021-11-27 06:53] LABS: Basophils Percent Auto 0.1 % (0-2); Hematocrit 33.7 % (37.0-47.0); Hemoglobin 11.3 g/dl (12.0-16.0); Imm Gran Abs Auto 0.05 X10*3/uL (0.00-0.03); Imm Gran Pct Auto 0.5 % (0.0-0.4); Lymphocytes Absolute Auto 1.3 X10*3/uL (1.2-4.9); Lymphocytes Percent Auto 13.2 % (20-40); Mean Corpuscular HGB Conc 33.5 g/dl (31.0-35.0); Mean Corpuscular Volume 83.6 fL (80.0-98.0); Mean Platelet Volume 9.9 fL (9.4-12.3); Monocytes Absolute Auto 0.3 X10*3/uL (0.1-1.2); Monocytes Percent Auto 2.6 % (2-11); Neutrophils Absolute Auto 7.9 x10*3/uL (2.0-8.3); Neutrophils Percent Auto 83.6 % (45-73); Platelet Count 287 X10*3/uL (160-400); Red Blood Count 4.03 X10*6/uL (4.20-5.50); Red Cell Distribution Width 12.2 % (11.0-16.0); White Blood Count 9.5 X10*3/uL (4.8-10.8)
[2021-11-27 07:07] LABS: Anion Gap 15 (12-20); Blood Urea Nitrogen 6 mg/dL (9-16); Calcium 9.1 mg/dL (8.4-10.2); Carbon Dioxide 23 mmol/L (22-29); Chloride 105 mmol/L (96-108); Creatinine Clr Calc Pharmacy 115.3; Estimated Glomerular Filt Rate > 60; Glucose Random 119 mg/dL (60-115); Potassium 4.4 mmol/L (3.3-5.1); Sodium 139 mmol/L (135-145)
[2021-11-27] MEDS: Famotidine/PF 20 MG/2 ML VIAL IVPUSH (07:36)
[2021-11-27 08:00] VITALS: BP 124/72; PULSE 52; RESP 18; TEMP 36.3; O2SAT 98
--- NOTE | 2021-11-27 11:08 | HO.POSTANES ---
Post Anesthesia Evaluation Post Anesthesia Evaluation Vital Signs: Vital Signs Temp Pulse Resp BP Pulse Ox O2 Del Method 11/27/21 08:00 97.3 F 52 18 124/72 98 Room Air 11/27/21 03:21 97.3 F 58 18 133/81 98 Room Air 11/26/21 23:24 97.9 F 60 18 131/78 96 Room Air Anesthesia: General Endotracheal-GETA Mental Status: Awake Pain Control: Satisfactory Nausea/Vomiting: None Hydration: Adequate Anesthesia-Related Issues: No Anes. Related Issues
--- NOTE | 2021-11-27 16:01 | MHC.CM.PN ---
EMR REVIEWED, PT ADMITTED S/P LAP SLEEVE GASTRECTOMY, PT REPORTS SHE LIVES W/ AND 2 CHILDREN, PT HAS A CPAP ONLY DME AND NO HOME SERVICES, PT VERIFIES PCP IS Ehsan OLVERA VACCINE AND PT EDUCATED ON AND COMPLETED A HCP NAMING HER ERIK QUEZADA [phone] HER [facility] AND HER MOTHER JIM CALDERON [phone] HER ALTERNATE. PT DISCHARGED HOME EARLIER TODAY W/PT'S MOTHER FOR TRANSPORT
== END 2021-11-27 10:31 | disposition home or self-care (01) | DRG 403 ==
LOC: HO.SSSA 17:10 → HO.S3 17:10
PROVIDERS: Nurse Practitioner; Physician Assistant Surgical; Admitting Provider Surgery; PCP Internal Medicine; Visit Provider Surgery
PROC: 0DB64Z3 Excision of Stomach, Percutaneous Endoscopic Approach, Vertical (ICD-10-PCS; CPT 43845; principal; 2021-11-26 12:50)
DX: E66.01 Morbid (severe) obesity due to excess calories (principal); K74.00 Hepatic fibrosis, unspecified; F32.A Depression, unspecified; F43.10 Post-traumatic stress disorder, unspecified; K76.0 Fatty (change of) liver, not elsewhere classified; Z68.41 Body mass index [BMI] 40.0-44.9, adult; M94.20 Chondromalacia, unspecified site; M54.50 Low back pain, unspecified; M19.90 Unspecified osteoarthritis, unspecified site; G47.33 Obstructive sleep apnea (adult) (pediatric); J45.909 Unspecified asthma, uncomplicated; G47.00 Insomnia, unspecified; Z91.040 Latex allergy status; Z88.0 Allergy status to penicillin; Z79.899 Other long term (current) drug therapy
CPT/HCPCS: 36415; 80048; 80053; 80061; 81025; 83036; 83525; 84443; 85014; 85018; 85025; 85610; 85730; 86140; 86850; 86900; 86901; 87635; 88307; 88342; A4649; C9088; J0131; J1100; J1170; J1956; J2250; J2370; J2405; J2765; J2795; J3010

== ENCOUNTER → 2021-12-18 09:08 | Outpatient (BNVA) | payer OTHER, SELFPAY | PROVIDERS: PCP Internal Medicine; Visit Provider Dietitian, Registered | DX: E66.9 Obesity, unspecified (principal); Z68.38 Body mass index [BMI] 38.0-38.9, adult | CPT/HCPCS: 97803 ==

== ENCOUNTER → 2022-02-07 14:45 | Outpatient (BNVA) | payer OTHER, SELFPAY | PROVIDERS: PCP Internal Medicine; Visit Provider Dietitian, Registered | DX: E66.9 Obesity, unspecified (principal); Z68.35 Body mass index [BMI] 35.0-35.9, adult | CPT/HCPCS: 97803 ==

== ENCOUNTER → 2022-04-09 11:43 | Outpatient (BNVA) | payer OTHER, SELFPAY | PROVIDERS: PCP Internal Medicine; Visit Provider Dietitian, Registered | DX: E66.9 Obesity, unspecified (principal); Z68.31 Body mass index [BMI] 31.0-31.9, adult; Z71.3 Dietary counseling and surveillance | CPT/HCPCS: 97803 ==

== ENCOUNTER → 2022-05-19 14:42 | Outpatient (BNVA) | payer OTHER, SELFPAY | PROVIDERS: PCP Internal Medicine; Visit Provider Dietitian, Registered | DX: E66.9 Obesity, unspecified (principal); Z68.31 Body mass index [BMI] 31.0-31.9, adult | CPT/HCPCS: 97803 ==

== ENCOUNTER → 2022-07-28 10:45 | Outpatient (BNVA) | payer OTHER, SELFPAY | PROVIDERS: PCP Internal Medicine; Visit Provider Dietitian, Registered | DX: E66.3 Overweight (principal); Z68.29 Body mass index [BMI] 29.0-29.9, adult | CPT/HCPCS: 97803 ==